=== PATIENT | female | born 1965 | race American Indian/Alaskan Native ===

== ENCOUNTER 2017-06-09 06:40 | Emergency (ER) | payer MEDICAID ==
[2017-06-09] MEDS ORDERED: Sodium Chloride 0.9% 1,000 ML IV STA (07:19)
--- NOTE | 2017-06-09 07:22 | ED PDOC ---
HPI: Abdomen Time Seen by Provider: 06/09/17 07:00 Chief Complaint (Nursing): Abdominal Pain Chief Complaint (Provider): Epigastric Pain History Per: Patient History/Exam Limitations: no limitations Location Of Pain/Discomfort: Epigastric Additional Complaint(s): Patient is a 52 year old female, with a previous medical history of diabetes, who presenting to the ED for epigatric pain radiating to both sides ongoing for 2 days. Patient denies nausea, vomiting, fever, and diarrhea. PCP: none provided. Past Medical History Reviewed: Historical Data, Nursing Documentation, Vital Signs Vital Signs: Last Vital Signs Temp 98.2 F 06/09/17 07:01 Pulse 82 06/09/17 07:01 Resp 16 06/09/17 07:01 BP 148/101 H 06/09/17 07:01 Pulse Ox 100 06/09/17 07:36 - Medical History PMH: Diabetes - Surgical History Surgical History: - Family History Family History: States: Unknown Family Hx - Immunization History Hx Tetanus Toxoid Vaccination: No Hx Influenza Vaccination: No Hx Pneumococcal Vaccination: No - Home Medications Home Medications: Ambulatory Orders Medication Instructions Recorded Acetaminophen/Oxycodone Hydr 1 tab PO Q6 #15 tab 10/02/14 [Percocet 325 mg-5 mg] Cyclobenzaprine Hydrochlorid 5 mg PO TID PRN #25 tab 10/02/14 [Cyclobenzaprine] Famotidine [Pepcid] 20 mg PO Q12 #20 tab 06/09/17 - Allergies Allergies/Adverse Reactions: Allergies Allergy/AdvReac Type Severity Reaction Status Date / Time No Known Allergies Allergy Unverified 06/09/17 07:00 Review of Systems ROS Statement: Except As Marked, All Systems Reviewed And Found Negative Constitutional: Negative for: Fever Gastrointestinal: Positive for: Abdominal Pain (Epigastric Pain). Negative for : Nausea, Vomiting, Diarrhea Physical Exam - Reviewed Nursing Documentation Reviewed: Yes Vital Signs Reviewed: Yes - Physical Exam Appears: Positive for: Well, Non-toxic, No Acute Distress Head Exam: Positive for: ATRAUMATIC, NORMAL INSPECTION, NORMOCEPHALIC Skin: Positive for: Normal Color, Warm, Dry Eye Exam: Positive for: Normal appearance ENT: Positive for: Normal ENT Inspection Neck: Positive for: Normal, Painless ROM, Supple Cardiovascular/Chest: Positive for: Regular Rate, Rhythm Respiratory: Positive for: CNT, Normal Breath Sounds Gastrointestinal/Abdominal: Positive for: Bowel Sounds, Soft, Tenderness (Mild epigastric tenderness ), Other (minimal RUQ ecchymosis) Extremity: Positive for: Normal ROM Neurologic/Psych: Positive for: Alert, Oriented - Laboratory Results Result Diagrams: 06/09/17 07:40 06/09/17 07:40 - ECG O2 Sat by Pulse Oximetry: 100 (RA) Pulse Ox Interpretation: Normal Medical Decision Making Medical Decision Making: Initial plan: * CMP and CBC * Lipase * Urine Dipstick * Urine * Famotidine 20 mg IVP * NS 1 L, 100 mls/hr * Reevaluation Scribe Attestation: Documented by Estelita Quinn, acting as a scribe for Davy Song MD. Provider Scribe Attestation: All medical record entries made by the Scribe were at my direction and personally dictated by me. I have reviewed the chart and agree that the record accurately reflects my personal performance of the history, physical exam, medical decision making, and the department course for this patient. I have also personally directed, reviewed, and agree with the discharge instructions and disposition. Disposition - Clinical Impression Clinical Impression: Gastritis - Patient ED Disposition Is Patient to be Admitted: No Counseled Patient/Family Regarding: Studies Performed, Diagnosis, Need For Followup, Rx Given - Disposition Referrals: Rc Vargas MD, PhD [Staff Provider] - Disposition: Routine/Home Disposition Time: 10:37 Condition: FAIR Prescriptions: Famotidine [Pepcid] 20 mg PO Q12 #20 tab Instructions: Gastritis (ED)
[2017-06-09 07:47] LABS: BASO # 0.1 K/uL (0.0-0.2); BASO % 1.8 % (0.0-2.0); EOS # 0.1 K/uL (0.0-0.7); EOS % 1.1 % (0.0-4.0); HEMOGLOBIN 13.6 g/dL (12.0-16.0); LYMPH # 1.7 K/uL (1.0-4.3); LYMPH % 25.3 % (20.0-40.0); MEAN CORPUSCULAR HGB CONC 33.7 g/dL (33.0-37.0); MEAN PLATELET VOLUME 7.6 fl (7.2-11.7); MONO # 0.5 K/uL (0.0-0.8); MONO % 8.3 % (0.0-10.0); NEUT # 4.2 K/uL (1.8-7.0); NEUT % 63.5 % (50.0-75.0); RBC 4.39 Mil/uL (3.80-5.20); RED CELL DISTRIBUTION WIDTH 12.4 % (11.5-14.5); WHITE BLOOD COUNT 6.6 K/uL (4.8-10.8)
[2017-06-09 08:03] LABS: ALB/GLOB RATIO 1.3 (1.0-2.1); ALBUMIN 4.7 g/dL (3.5-5.0); ALT/SGPT 76 U/L (9-52); AST/SGOT 37 U/L (14-36); BLOOD UREA NITROGEN 19 mg/dl (7-17); CALCIUM 9.4 mg/dL (8.4-10.2); GFR AFRICAN-AMERICAN > 60; GFR NON-AFRICAN AMERICAN > 60; LIPASE 350 U/L (23-300)
[2017-06-09] MEDS ORDERED: Iohexol 300 100 ML IJ ONE (09:24)
[2017-06-09] MEDS ORDERED: Sodium Chloride 0.9% 50 ML IV ONE (09:24)
--- NOTE | 2017-06-09 10:35 | CT ---
PROCEDURE: CT Abdomen and Pelvis with contrast HISTORY: pancreatitis COMPARISON: None available TECHNIQUE: Contrast dose: 95 mL Omnipaque 300 Radiation dose: Total exam DLP = 722.84 mGy-cm. This CT exam was performed using one or more of the following dose reduction techniques: Automated exposure control, adjustment of the mA and/or kV according to patient size, and/or use of iterative reconstruction technique. FINDINGS: LOWER THORAX: Mild bibasilar atelectasis. No visible pleural effusion or pneumothorax. Asymmetric soft tissue, right greater than left breast. Recommend correlation with dedicated breast imaging. LIVER: Hepatomegaly Hypoattenuation of the liver compatible with hepatic steatosis. GALLBLADDER AND BILE DUCTS: Unremarkable. PANCREAS: No significant peripancreatic inflammatory changes evident. Subcentimeter peripancreatic and mesenteric lymph nodes, nonspecific. SPLEEN: 7 mm probable splenule. Otherwise unremarkable. ADRENALS: Unremarkable. KIDNEYS AND URETERS: The kidneys enhance symmetrically. No hydronephrosis or obstructing calculus identified. 4 mm right upper pole renal hypodensity, too small to characterize. VASCULATURE: No aortic aneurysm. BOWEL: Stomach is nondistended. Lack of oral contrast limits evaluation for bowel pathology. Bowel loops appear within normal limits of caliber without evidence of obstruction. APPENDIX: The appendix appears within normal limits of caliber. No secondary signs of acute appendicitis. PERITONEUM: No significant free fluid. No definite free air. LYMPH NODES: No bulky adenopathy identified. BLADDER: Unremarkable. REPRODUCTIVE: The uterus is present. 2.4 cm rounded structure to the right and anterior to the uterus of unclear origin (series 3, image 139). Considerations include unopacified bowel loop, exophytic fibroid, soft tissue mass, etc. BONES: Degenerative changes. Vacuum disc phenomenon at L4-L5 and L5-S1. OTHER FINDINGS: Small fat containing umbilical hernia. IMPRESSION: No significant peripancreatic inflammatory changes evident. Subcentimeter peripancreatic and mesenteric lymph nodes, nonspecific. Recommend correlation with amylase and lipase. 2.4 cm rounded structure to the right and anterior to the uterus of unclear origin. Considerations include unopacified bowel loop, exophytic fibroid, soft tissue mass, etc. Recommend clinical correlation and further evaluation with pelvic ultrasound as well as CT of the abdomen and pelvis utilizing both oral and IV contrast recommended. Hepatic steatosis. Hepatomegaly. Asymmetric soft tissue, right greater than left breast. Recommend correlation with dedicated breast imaging. Additional findings as above.
[2017-06-09 12:38] VITALS: BP 132/74; PULSE 82; RESP 16; TEMP 98.2; O2SAT 100; BMI 26.6
--- NOTE | 2017-06-15 08:30 | CARD ---
APPROVED REPORT EKG Measurement Heart [id number] <Conclusion> Normal sinus rhythm Normal ECG
== END 2017-06-09 11:05 | disposition home or self-care (01) ==
LOC: H.ER 06:40
DX: K29.70 Gastritis, unspecified, without bleeding (principal); E11.9 Type 2 diabetes mellitus without complications